=== PATIENT | male | born 1970 | race African-American/Black ===

== ENCOUNTER 2016-10-03 13:40 | Inpatient (IN) | payer OTHER ==
[~2016-10-03] VITALS: Ht 167.6 cm; Wt 99.7 kg
[~2016-10-03 13:40] MED LIST: ASPI325T6 PO; CALCIUM 600600 MG PO; HCTZ 25MG TAB25 MG PO; K-TAB20 PO; NEURONTIN300 MG/CAP PO; NORVASC 10MG10 MG PO; OXYCONTIN30 MG PO; REVLIMID10 MG PO; ROXICODONE 55 MG/TAB PO; VALTREX 50500 MG/TAB PO; VITAMIN B-6100 MG PO; VITAMIN D31000 I1 PO; ZOMETA4 MG/100 M IV
[2016-10-22] MEDS ORDERED: PHOS LO PO (12:31)
[2016-10-22] MEDS ORDERED: PRINIVIL40 MG PO (12:32)
[2016-10-22] MEDS ORDERED: B-121000 MCG PO (12:32)
[2016-10-22] MEDS ORDERED: MOBIC15 MG PO (12:33)
[2016-10-22] MEDS ORDERED: NORCO 325 MG-51 TAB PO (14:37)
[2016-10-22] MEDS ORDERED: SENOKOT S 50 MG1 TAB PO (14:37)
[2016-10-22] MEDS ORDERED: PYRIDIUM 100MG100 MG PO (14:38)
[2016-11-20] VITALS (11 sets, daily range): BP systolic 120–161; BP diastolic 64–89; PULSE 78–105; TEMP 97.9–98.2
[2016-11-21] VITALS (7 sets, daily range): BP systolic 113–144; BP diastolic 63–78; PULSE 93–102; TEMP 98.1–99.4
[2016-11-21 07:10] LABS: BASO % 0.2 % (0.0-2.0); GRAN % 86.2 % (42.2-75.2); LYMPH # 0.9 (1.2-3.4); MEAN CELL VOLUME 90 fl (80.0-100.0); MEAN CORPUSCULAR HGB CONC 34 g/dl (33.0-37.0); MEAN PLATELET VOLUME 9.4 fl (7.4-10.4); MONO # 0.8 (0.1-0.6); MONO % 6.1 % (1.7-9.3); PLATELET COUNT 158 K/mm3 (130-400); RED BLOOD COUNT 3.86 M/mm3 (4.20-5.60); REDCELL DISTRIBUTION WIDTH-CV 13.5 % (11.5-14.5); WHITE BLOOD COUNT 12.7 K/mm3 (4.8-10.8)
[2016-11-21 07:11] LABS: HEMATOCRIT 34.8 % (42.0-52.0); HEMOGLOBIN 11.8 g/dl (13.5-18.0); MEAN CORPUSCULAR HEMOGLOBIN 31 pg (27.0-31.0)
[2016-11-21 07:16] LABS: CALCIUM 8.1 mg/dL (8.4-10.2); CREATININE, serum 1.11 mg/dL (0.66-1.25); POTASSIUM 4.1 mmol/L (3.4-5.0)
[2016-11-22 04:50] VITALS: BP 129/78; PULSE 90; TEMP 99
[2016-11-22 09:52] VITALS: BP 128/73; PULSE 95; TEMP 98
[2016-11-22] MEDS ORDERED: LEVAQUIN 2250 MG/TAB PO (10:27)
[2016-11-22] MEDS ORDERED: PERCOCET 325 MG1 TA2 PO (10:27)
[2016-11-22] MEDS ORDERED: SENOKOT8.6 MG PO (10:28)
== END 2016-11-22 11:25 | disposition home or self-care (01) | DRG 707 ==
LOC: SURG 10-30 11:00 → INPTSU 11-20 06:00 → SURG 11-20 09:00
PROVIDERS: Urology
PROC: 0VT34ZZ Resection of Bilateral Seminal Vesicles, Percutaneous Endoscopic Approach (ICD-10-PCS; 2016-11-20)
PROC: 8E0W4CZ Robotic Assisted Procedure of Trunk Region, Percutaneous Endoscopic Approach (ICD-10-PCS; 2016-11-20)
PROC: 0VT04ZZ Resection of Prostate, Percutaneous Endoscopic Approach (ICD-10-PCS; principal; 2016-11-20 09:00)
DX: C61 Malignant neoplasm of prostate (principal); Z94.84 Stem cells transplant status; C67.5 Malignant neoplasm of bladder neck
CPT/HCPCS: A9284; C1713; J0690; J1100; J1170; J1885; J2270; J2405; J2704; J3010; J7120

== ENCOUNTER 2016-10-22 11:03 | Day surgery (SDC) | payer OTHER ==
[~2016-10-22] VITALS: Ht 167.6 cm; Wt 99.1 kg
[2016-10-22 12:21] VITALS: BP 129/80; PULSE 66; TEMP 98.5
[2016-10-22] MEDS ORDERED: PHOS LO PO (12:31)
[2016-10-22] MEDS ORDERED: PRINIVIL40 MG PO (12:32)
[2016-10-22] MEDS ORDERED: B-121000 MCG PO (12:32)
[2016-10-22] MEDS ORDERED: MOBIC15 MG PO (12:33)
[2016-10-22 14:00] VITALS: BP 125/68; PULSE 67; TEMP 98
[2016-10-22 14:15] VITALS: BP 115/78; PULSE 63
[2016-10-22 14:30] VITALS: BP 123/90; PULSE 60
[2016-10-22] MEDS ORDERED: SENOKOT S 50 MG1 TAB PO (14:37)
[2016-10-22] MEDS ORDERED: NORCO 325 MG-51 TAB PO (14:37)
[2016-10-22] MEDS ORDERED: PYRIDIUM 100MG100 MG PO (14:38)
[2016-10-22 14:45] VITALS: BP 108/78; PULSE 57
[2016-10-22 14:46] VITALS: BP 125/68; PULSE 68
== END 2016-10-22 15:20 | disposition home or self-care (01) ==
LOC: SDCO 11:03
DX: C67.5 Malignant neoplasm of bladder neck (principal); C67.0 Malignant neoplasm of trigone of bladder; C90.00 Multiple myeloma not having achieved remission; C61 Malignant neoplasm of prostate; G47.33 Obstructive sleep apnea (adult) (pediatric); I10 Essential (primary) hypertension
CPT/HCPCS: J0690; J1100; J1885; J2405; J2704; J3010

== ENCOUNTER 2017-07-30 16:26 | Emergency (ER) | payer OTHER ==
[~2017-07-30] VITALS: Ht 167.6 cm; Wt 101.8 kg
[~2017-07-30 16:26] MED LIST changes: +B-121000 MCG PO; +LEVAQUIN 2250 MG/TAB PO; +MOBIC15 MG PO; +NORCO 325 MG-51 TAB PO; +PERCOCET 325 MG1 TA2 PO; +PHOS LO PO; +PRINIVIL40 MG PO; +PYRIDIUM 100MG100 MG PO; +SENOKOT S 50 MG1 TAB PO; +SENOKOT8.6 MG PO
[2017-07-30 17:29] LABS: BASO % 0.4 % (0.0-2.0); EOS % 0.6 % (0-4.0); GRAN # 3.5 (1.4-6.5); GRAN % 74.5 % (42.2-75.2); HEMATOCRIT 38.9 % (42.0-52.0); HEMOGLOBIN 13.4 g/dl (13.5-18.0); LYMPH # 0.6 (1.2-3.4); LYMPH % 12.9 % (20.0-51.0); MEAN CELL VOLUME 88 fl (80.0-100.0); MEAN CORPUSCULAR HEMOGLOBIN 30 pg (27.0-31.0); MEAN CORPUSCULAR HGB CONC 34 g/dl (33.0-37.0); MEAN PLATELET VOLUME 9.8 fl (7.4-10.4); MONO # 0.5 (0.1-0.6); MONO % 10.5 % (1.7-9.3); PLATELET COUNT 123 K/mm3 (130-400); RED BLOOD COUNT 4.43 M/mm3 (4.20-5.60); REDCELL DISTRIBUTION WIDTH-CV 13.2 % (11.5-14.5)
[2017-07-30 17:49] LABS: ALBUMIN 3.7 gm/dL (3.5-5.0); BILIRUBIN,TOTAL 0.6 mg/dL (0.0-1.0); CALCIUM 9.2 mg/dL (8.4-10.2); CREATININE, serum 1.06 mg/dL (0.66-1.25); POTASSIUM 3.8 mmol/L (3.4-5.0); TOTAL PROTEIN 7.3 gm/dL (6.4-8.2)
[2017-07-30 18:27] VITALS: BP 118/73
[2017-07-30 19:11] LABS: COLLECTION METHOD CLEAN CATCH
[2017-07-30] MEDS ORDERED: LEVAQUIN 750MG750 M1 PO (19:13)
[2017-07-30 19:16] LABS: PH 6 (5-8); SQUAMOUS EPITHELIAL None Seen /hpf; URINE APPEARANCE Clear; URINE BACTERIA None Seen /hpf; URINE BILIRUBIN Negative (NEGATIVE); URINE BLOOD Negative (NEGATIVE); URINE COLOR Straw; URINE GLUCOSE Negative (NEGATIVE); URINE KETONE Negative (NEGATIVE); URINE LEUKOCYTE ESTERASE Negative (NEGATIVE); URINE NITRATE Negative (NEGATIVE); URINE PROTEIN(semi-quant) Negative (NEGATIVE); URINE RBC 0-2 /hpf; URINE UROBILINOGEN Negative (NEGATIVE)
[2017-07-30 19:26] VITALS: PULSE 99; TEMP 99.9
== END 2017-07-30 19:26 | disposition home or self-care (01) ==
LOC: COL.ER 16:26
PROVIDERS: Physician Assistant
DX: J18.1 Lobar pneumonia, unspecified organism (principal); I10 Essential (primary) hypertension; F17.220 Nicotine dependence, chewing tobacco, uncomplicated; Z85.46 Personal history of malignant neoplasm of prostate; Z90.79 Acquired absence of other genital organ(s); Z98.890 Other specified postprocedural states; Z94.84 Stem cells transplant status
CPT/HCPCS: J1885; J7030

== ENCOUNTER 2018-06-04 22:34 | Inpatient (IN) | payer OTHER ==
[~2018-06-04] VITALS: Ht 182.9 cm; Wt 98.2 kg
[~2018-06-04 22:34] MED LIST changes: -REVLIMID15 MG PO
[2018-06-04] MEDS ORDERED: REVLIMID15 MG PO (23:27)
[2018-06-04 23:36] LABS: HEMOGLOBIN 12.7 g/dl (13.5-18.0); MEAN CELL VOLUME 88 fl (80.0-100.0); MEAN CORPUSCULAR HEMOGLOBIN 30 pg (27.0-31.0); MEAN CORPUSCULAR HGB CONC 34 g/dl (33.0-37.0); PLATELET COUNT 104 K/mm3 (130-400); REDCELL DISTRIBUTION WIDTH-CV 13.2 % (11.5-14.5)
[2018-06-04 23:43] LABS: INR 1.6 (0.8-3.0); PROTHROMBIN TIME 17.8 SECONDS (9.7-12.8)
[2018-06-04 23:46] LABS: PARTIAL THROMBOPLASTIN TIME 32.8 SECONDS (26.0-37.0)
[2018-06-04 23:47] LABS: ALBUMIN 3.5 gm/dL (3.5-5.0); BILIRUBIN,TOTAL 0.9 mg/dL (0.0-1.0); CREATININE, serum 1.25 mg/dL (0.66-1.25); TOTAL PROTEIN 6.6 gm/dL (6.4-8.2)
[2018-06-04 23:48] LABS: POTASSIUM 2.9 mmol/L (3.4-5.0)
[2018-06-04 23:57] LABS: BAND 26 % (0-10); LYMPHOCYTE 8 % (20.0-51.0); NEUTROPHILS 61 % (42.0-75.2); PLATELET ESTIMATE DECREASED (NORMAL)
[2018-06-04 23:58] LABS: OVALOCYTES 1+; TEAR DROP CELLS 1+
[2018-06-05] VITALS (7 sets, daily range): BP systolic 89–135; BP diastolic 54–73; PULSE 79–113; TEMP 98–102.1
--- NOTE | 2018-06-05 01:53 | NUR ---
Patient admitted to the floor from the ER at 0100 via bedcart. Admission B and assessment completed. Allergies and med-rec reviewed. Patient is A&O x 4. VSS. Tele maintained. Denies any pain at this time, reports it is uncomfortable when walking on LLE. LLE from knee to ankle is noticablly swollen and warm to the touch compared to RLE. IVF infusing with intermittent antibiotic per orders. Denies any concerns or needs at this time, call light is within reach.
[2018-06-05 03:08] LABS: MAGNESIUM 1.3 mg/dL (1.6-2.3)
[2018-06-05 03:21] LABS: C-REACTIVE PROTEIN 22.6 mg/dL (0.0-0.9)
--- NOTE | 2018-06-05 06:14 | NUR ---
Patient has rested well since arriving to the floor. VSS, HR does become tachycardiac in the low 100's when patient is up and ambulating to the bathroom. LLE remains warm to the touch, swollen with slight reddness. IVF infusing per orders with intermittent antibiotic. Patient is currently taking oral potassium replacement with last dose scheduled to be given at 0900 and recheck of the potassium lab due at 1200. Patient denies any concerns or needs at this time. Infectious disease consult called to Dr. Fields this morning.
[2018-06-05 06:52] LABS: HEMATOCRIT 39.6 % (42.0-52.0); HEMOGLOBIN 13.4 g/dl (13.5-18.0); MEAN CELL VOLUME 89 fl (80.0-100.0); MEAN CORPUSCULAR HEMOGLOBIN 30 pg (27.0-31.0); MEAN CORPUSCULAR HGB CONC 34 g/dl (33.0-37.0); MEAN PLATELET VOLUME 10.1 fl (7.4-10.4); PLATELET COUNT 87 K/mm3 (130-400); RED BLOOD COUNT 4.47 M/mm3 (4.20-5.60); REDCELL DISTRIBUTION WIDTH-CV 13.2 % (11.5-14.5)
[2018-06-05 06:57] LABS: CALCIUM 7.4 mg/dL (8.4-10.2); CREATININE, serum 1.05 mg/dL (0.66-1.25); POTASSIUM 3.8 mmol/L (3.4-5.0)
--- NOTE | 2018-06-05 08:00 | NUR ---
pt resting in bed. A&Ox3. c/o of constant throbbing pain rating at 8/10 in the left calf area. Swelling and warmth present in LLE. Enouraged cough and deep breathing. call light within reach.
--- NOTE | 2018-06-05 08:00 | NUR ---
PATIENT RESTING IN BED. MEAL TRAY ON THE BEDSIDE TABLE. PATIENT IS A&O. TACHYCARDIA AND TEMPURATURE OF 102.1 NOTED, OTHERWISE VSS. TELE IN PLACE. PATIENT GIVEN 1 TABLET OF PRN NORCO FOR FEVER AND PAIN IN HIS LEFT CALF RATED AN 8/10 ON A 0-10 SCALE. BOWEL SOUNDS HYPOACTIVE ALL FOUR QUADRANTS. PATIENT TOLERATING FOOD & LIQUIDS WITHOUT ANY COMPLAINTS OF N/V. POSITIVE PEDAL PULSES EQUAL BILATERALLY. 1+ PITTING-EDEMA TO LEFT FOOT/ANKLE NOTED. NON-PITTING EDEMA, TIGHTNESS, ERYTHEMA, AND PAIN OVER LEFT CALF NOTED. CAP REFILL <3 SECONDS. CMS INTACT. IV FLUIDS INFUSING TO RIGHT HAND IV VIA PUMP. FAMILY PRESENT AT THE BEDSIDE. CALL LIGHT WITHIN REACH. PATIENT DENIES ANY OTHER NEEDS AT THIS TIME.
[2018-06-05 09:28] LABS: BAND 47 % (0-10); NEUTROPHILS 41 % (42.0-75.2)
[2018-06-05 09:29] LABS: LYMPHOCYTE 5 % (20.0-51.0); PLATELET ESTIMATE NORMAL (NORMAL)
--- NOTE | 2018-06-05 11:22 | NUR ---
MIS and SW student met with the patient to discuss discharge plan. The patient states that he lives in [place] with his (Eric) and son. The patient does not use any DME and reports independence with ADLs. The patient receives primary care through the OR in [place]. The patient also receives his medications from the OR in [place] and reports no difficulties obtaining his medications. The patient stated that he did not have a DPOA-HC completed and was not interested in completing one at this time. The patient plans to return home upon discharge. No additional needs at this time.
--- NOTE | 2018-06-05 12:00 | NUR ---
UPON RE-ASSESSMENT AFTER SECOND TABLET OF NORCO WAS GIVEN, TEMPURATURE DROPPED TO 100.0. PATIENT RATING HIS PAIN A 5/10 ON A 0-10 SCALE.
--- NOTE | 2018-06-05 12:20 | NUR ---
First visit from the room worker. No needs right now.
--- NOTE | 2018-06-05 13:38 | NUR ---
pt resting in bed. Reassesment of PRN Rosepine 2-tab given pt rating pain at 5/10 in the left lower extremity. no c/o nausea. IV fluids infusing to the right hand via IV pump. family at bedside. call light within reach.
--- NOTE | 2018-06-05 19:00 | NUR ---
REPORT GIVEN TO REBECCA SMITH.
--- NOTE | 2018-06-05 20:30 | NUR ---
HS med ibuprofen reviewed and given. IV wrapped and patient takes shower. Linens changed. LLE very painful when he ambulates and walker given to use prn. at bedside and very attentive. Declines snack/sprite given. LLE edematous/skin to calf tight and elevated on 2 pillows. Encouraged to call if needs stronger or additional pain med. Alert and oriented x4.
[2018-06-06] VITALS (7 sets, daily range): BP systolic 11–134; BP diastolic 62–78; PULSE 84–103; TEMP 98.4–102.5
--- NOTE | 2018-06-06 01:15 | NUR ---
Rests in bed with eyes closed. Respirations with ease.
--- NOTE | 2018-06-06 05:44 | NUR ---
Patient has been resting quietly in bed. Respirations with ease.
--- NOTE | 2018-06-06 05:56 | NUR ---
Patient awake watching TV. States "doing ok". Denies need for pain med.
[2018-06-06 06:48] LABS: HEMATOCRIT 38.9 % (42.0-52.0); MEAN CELL VOLUME 89 fl (80.0-100.0); MEAN CORPUSCULAR HEMOGLOBIN 30 pg (27.0-31.0); MEAN CORPUSCULAR HGB CONC 33 g/dl (33.0-37.0); MEAN PLATELET VOLUME 10.7 fl (7.4-10.4); PLATELET COUNT 97 K/mm3 (130-400); RED BLOOD COUNT 4.37 M/mm3 (4.20-5.60); REDCELL DISTRIBUTION WIDTH-CV 13.2 % (11.5-14.5)
[2018-06-06 06:50] LABS: CALCIUM 7.6 mg/dL (8.4-10.2); CREATININE, serum 1.58 mg/dL (0.66-1.25); MAGNESIUM 2.5 mg/dL (1.6-2.3); POTASSIUM 3.6 mmol/L (3.4-5.0)
[2018-06-06 07:29] LABS: BAND 29 % (0-10); NEUTROPHILS 46 % (42.0-75.2); PLATELET ESTIMATE NORMAL (NORMAL)
[2018-06-06 07:31] LABS: LYMPHOCYTE 9 % (20.0-51.0)
--- NOTE | 2018-06-06 07:50 | NUR ---
pt up in chair watching tv. there is redness, warmth and swelling in the left lower extremity. pt rates constant pain at 5 on scale of 1-10. denies need for pain medication at this time. call light within reach.
--- NOTE | 2018-06-06 08:00 | NUR ---
PATIENT IS A&O. TACHYCARDIA NOTED, OTHERWISE VSS. BOWEL SOUNDS ACTIVE ALL FOUR QUADRANTS. PATIENT TOLERATING FOOD & LIQUIDS WITHOUT ANY COMPLAINTS OF N/V. POSITIVE PEDAL PULSES EQUAL BILATERALLY. 1+ PITTING-EDEMA TO LEFT FOOT. TIGHTNESS OVER LEFT CALVE WITH SMALL ROUND SCAB TO FRONT OF NGUYEN NOTED. REDNESS TO CALF NOTED. LLE ELEVATED ON PILLOWS. IV FLUIDS INFUSING TO RIGHT HAND IV. CALL LIGHT WITHIN REACH. NO OTHER NEEDS AT THIS TIME.
--- NOTE | 2018-06-06 13:18 | NUR ---
pt in bed. Scheduled Vibramycin hung and began infusing at 75mL/hr to monitor for adverse reaction. patient tolerated well and increased rate to 125mL/hr. VSS. discussed to let nurse know if he experiences chills, itching, nausea, or any other unpleasant symptoms. encouraged to call when he gets up to use bathroom for FENA collection. pt states "doing alright" no need for pain medication at this time. LLE extremity elevated by pillows. SCD on RLE. family and mealtray at bedside. pt has no further concerns at this time. call light within reach. report given to Primary REBECCA Talley.
[2018-06-06 14:47] LABS: CREATININE, serum 1.57 mg/dL (0.66-1.25)
--- NOTE | 2018-06-06 16:55 | NUR ---
REPORT GIVEN TO REBECCA WHATLEY.
--- NOTE | 2018-06-06 17:00 | NUR ---
GAVE ORDERS TO COLLECT WOUND CULTURE ONLY IF SCAB OPENS OR WOUND STARTS TO DEVELOP DRAINAGE.
--- NOTE | 2018-06-06 18:29 | NUR ---
Patient in bed resting, alert and oriented x 3. at bedside. IV fluids infusing by pump to left hand. Denies pain at this time. Denies further needs at this time. Will report off to fast food shift supervisor.
--- NOTE | 2018-06-06 22:52 | NUR ---
Completed assessment and medication administration; PT tolerated all cares well; PT had acute fever of 102.4 that resolved without medication; LLE is warm and red; ABX continues for cellulitis; scabbed wounds deem wound culture unable to be completed per doctor; PT is A&Ox3, BS active x4, IND in room; NS at 150ml/hr continue to right hand; No further complaints or concerns at time of exit; Call light placed within reach; Will continue to monitor. CDA
[2018-06-07 00:39] VITALS: BP 110/64; PULSE 98; TEMP 100.5
--- NOTE | 2018-06-07 03:26 | NUR ---
PT resting well in bed with spouse on window bench; IV running NS to right hand at 150ml/hr; LLE continues to be red and warm to touch; No further accessed concerns at time of rounds; PT IND resumed comfortable position in bed; call placed within reach; Will continue to monitor. CDA
[2018-06-07 04:00] VITALS: BP 114/74; PULSE 94; TEMP 101
--- NOTE | 2018-06-07 04:52 | NUR ---
Made ALONZO Moreno aware of fever; no new order or changes made at this time. Will let the fever continue to naturally work; Call to notifiy if fever gets above 101.5F. CDA
[2018-06-07 05:59] LABS: HEMATOCRIT 32.9 % (42.0-52.0); HEMOGLOBIN 11.2 g/dl (13.5-18.0); MEAN CELL VOLUME 88 fl (80.0-100.0); MEAN CORPUSCULAR HEMOGLOBIN 30 pg (27.0-31.0); MEAN CORPUSCULAR HGB CONC 34 g/dl (33.0-37.0); PLATELET COUNT 120 K/mm3 (130-400); RED BLOOD COUNT 3.72 M/mm3 (4.20-5.60); REDCELL DISTRIBUTION WIDTH-CV 13.4 % (11.5-14.5)
[2018-06-07 06:03] LABS: CALCIUM 7.4 mg/dL (8.4-10.2); CREATININE, serum 1.65 mg/dL (0.66-1.25); MAGNESIUM 2.1 mg/dL (1.6-2.3); POTASSIUM 3.3 mmol/L (3.4-5.0)
--- NOTE | 2018-06-07 06:53 | NUR ---
Report given to REBECCA Retana. CDA
[2018-06-07 08:05] VITALS: BP 136/73; PULSE 92; TEMP 98.9
[2018-06-07 08:31] LABS: BAND 9 % (0-10); LYMPHOCYTE 9 % (20.0-51.0); NEUTROPHILS 73 % (42.0-75.2); PLATELET ESTIMATE NORMAL (NORMAL)
--- NOTE | 2018-06-07 09:35 | NUR ---
Pt is awake and A/Ox4, sitting up in bed eating breakfast. He states he is having 10/10 pain to his LLE, he initially adamantly refuses pain medication but eventually states he would like to try norco which was given. LLE is red, swollen, and warm to touch. He reports he believes that his leg is worse today. IVF are infusing into right hand without difficulty. Pt and deny needs at this time.
[2018-06-07 11:36] VITALS: BP 121/75; PULSE 89; TEMP 97.8
--- NOTE | 2018-06-07 12:51 | NUR ---
Pt requested additional pain medication, reports 5/10 pain to LLE when resting and 10/10 to LLE with ambulation. Pt was given PRN norco x2.
[2018-06-07 16:09] VITALS: BP 126/76; PULSE 86; TEMP 98.6
--- NOTE | 2018-06-07 16:52 | NUR ---
Pt has had an overall uneventful shift. Pain to LLE is well controlled with PRN norco. Currently pt states his pain is a 2/10 while resting in bed. Denies any stools this afternoon. Denies any other needs. at bedside.
[2018-06-07 21:10] VITALS: BP 114/65; PULSE 90; TEMP 98.6
--- NOTE | 2018-06-07 23:17 | NUR ---
Completed assessment and medication administration; PT tolerated all cares and medications well; PT reported pain of 7/10 to LLE prior to administration of available Helen x2; PT A&Ox3, BS active x4, and LCTAB; PT denied further needs at time of exit; PT able to position comfortably into bed without assistance; Call light placed within reach; No further needs verbalized at this time; Will continue to monitor. CDA
[2018-06-08 00:12] VITALS: BP 129/70; PULSE 99; TEMP 99.7
[2018-06-08 04:56] VITALS: BP 121/70; PULSE 87; TEMP 98.6
[2018-06-08 06:15] LABS: HEMOGLOBIN 11.5 g/dl (13.5-18.0); MEAN CELL VOLUME 90 fl (80.0-100.0); MEAN CORPUSCULAR HEMOGLOBIN 31 pg (27.0-31.0); MEAN CORPUSCULAR HGB CONC 34 g/dl (33.0-37.0); MEAN PLATELET VOLUME 9.9 fl (7.4-10.4); PLATELET COUNT 151 K/mm3 (130-400); RED BLOOD COUNT 3.77 M/mm3 (4.20-5.60); REDCELL DISTRIBUTION WIDTH-CV 13.8 % (11.5-14.5)
--- NOTE | 2018-06-08 06:23 | NUR ---
PT resting well in bed with CPAP in place; PT tolerated ABX IV well without complaints; PT continues I&O measuring and educated on purpose of measuring out; PT reports decrease in LLE pain and discomfort; No further needs assessed at time of rounds; call light within reach; will continue to monitor. CDA
[2018-06-08 06:25] LABS: HEMATOCRIT 33.9 % (42.0-52.0)
[2018-06-08 06:28] LABS: ALBUMIN 2.7 gm/dL (3.5-5.0); BILIRUBIN,TOTAL 0.2 mg/dL (0.0-1.0); CALCIUM 7.7 mg/dL (8.4-10.2); CREATININE, serum 1.58 mg/dL (0.66-1.25); POTASSIUM 3.2 mmol/L (3.4-5.0); TOTAL PROTEIN 5.6 gm/dL (6.4-8.2)
--- NOTE | 2018-06-08 06:58 | NUR ---
Report given to REBECCA Julien. CDA
[2018-06-08 07:22] VITALS: BP 116/72; PULSE 77; TEMP 98.8
[2018-06-08 08:57] LABS: BAND 12 % (0-10); EOSINOPHIL 2 % (0-4); LYMPHOCYTE 13 % (20.0-51.0); NEUTROPHILS 61 % (42.0-75.2); PLATELET ESTIMATE NORMAL (NORMAL)
[2018-06-08 13:08] VITALS: BP 113/74; PULSE 86; TEMP 97.9
--- NOTE | 2018-06-08 13:30 | NUR ---
Patient started to having clear drainage from his left calf. There is a cluster of blisters that are weeping. Notified Dr Fields and asked if wanted the wound cultured. Wound culture sent. Changed the patients linens that had drainage on them. Patient did not want a dressing or tape on his leg. It is not draining very much. No increased pain. No other changes at this time. Call light within reach.
[2018-06-08 15:43] VITALS: BP 120/89; PULSE 94; TEMP 99.3
--- NOTE | 2018-06-08 18:36 | NUR ---
Patient is sitting up on the couch to eat dinner. His brought food for him. He is rating pain at 7 on a 0-10 scale. Ira given. No complaints of nausea. He has been doing ok this afternoon. No more drainage from left leg. No other changes at this time.
[2018-06-08 20:44] VITALS: BP 141/85; PULSE 91; TEMP 98.6
--- NOTE | 2018-06-08 22:00 | NUR ---
PT WORRIED ABOUT BLISTERY AREA ON LEFT CALF THAT IS WEEPING. PT DID NOT WANT LEG WRAPPED.
[2018-06-09 00:05] VITALS: BP 127/80; PULSE 86; TEMP 99.2
[2018-06-09 04:15] VITALS: BP 125/65; PULSE 93; TEMP 99.4
--- NOTE | 2018-06-09 06:17 | NUR ---
PT HAS KEPT LLE ELEVATED ALL NIGHT. NO REQUEST FOR PAIN MEDS. IN ROOM.
[2018-06-09 06:33] LABS: HEMOGLOBIN 11.8 g/dl (13.5-18.0); MEAN CELL VOLUME 89 fl (80.0-100.0); MEAN CORPUSCULAR HEMOGLOBIN 30 pg (27.0-31.0); MEAN CORPUSCULAR HGB CONC 34 g/dl (33.0-37.0); MEAN PLATELET VOLUME 9.9 fl (7.4-10.4); PLATELET COUNT 194 K/mm3 (130-400); RED BLOOD COUNT 3.92 M/mm3 (4.20-5.60); REDCELL DISTRIBUTION WIDTH-CV 13.8 % (11.5-14.5)
[2018-06-09 06:48] LABS: ALBUMIN 2.9 gm/dL (3.5-5.0); BILIRUBIN,TOTAL 0.2 mg/dL (0.0-1.0); CALCIUM 8.4 mg/dL (8.4-10.2); CREATININE, serum 1.57 mg/dL (0.66-1.25); POTASSIUM 3.7 mmol/L (3.4-5.0)
--- NOTE | 2018-06-09 07:30 | NUR ---
Pt AAOx3 independent in room, at bedside. Pt states feeling "confused because my leg has only gotten worse since hospital admisison". Pt educated on IV antibiotics and infectious process.
[2018-06-09 08:23] VITALS: BP 133/75; PULSE 90; TEMP 99.4
[2018-06-09 09:28] LABS: BAND 24 % (0-10); DOHLE BODIES PRESENT; EOSINOPHIL 1 % (0-4); LYMPHOCYTE 9 % (20.0-51.0); NEUTROPHILS 51 % (42.0-75.2); PLATELET ESTIMATE NORMAL (NORMAL); TOXIC GRANULATION PRESENT
[2018-06-09 11:42] VITALS: BP 148/60; PULSE 85; TEMP 98
[2018-06-09 16:56] VITALS: BP 141/84; PULSE 94; TEMP 98.2
[2018-06-09 20:53] VITALS: BP 129/83; PULSE 91; TEMP 98.4
--- NOTE | 2018-06-09 21:00 | NUR ---
Assessment complete see flow sheet. C/O pain at IV site. Noted to be leaking when flush attempted, swelling at site with redness. DCd at this time, cath intact. Left lower extremity eleveated on pillow. Wound noted to be seeping yellow fluid. Noted to be red with swelling to all of the calf area. Plan of care discussed-verbalizes understanding. Instructed to call for question or concerns. Will continue to monitor.
[2018-06-10 00:14] VITALS: BP 134/66; PULSE 77; TEMP 97.8
[2018-06-10 04:00] VITALS: BP 127/85; PULSE 89; TEMP 98.3
--- NOTE | 2018-06-10 05:00 | NUR ---
Rested off and on through the night. Denies any need for pain medications-states pain level is 4/10 but is acceptable. Instructed to call for questions or concerns. Will monitor.
[2018-06-10 07:04] LABS: HEMATOCRIT 38.2 % (42.0-52.0); HEMOGLOBIN 12.5 g/dl (13.5-18.0); MEAN CELL VOLUME 90 fl (80.0-100.0); MEAN CORPUSCULAR HEMOGLOBIN 29 pg (27.0-31.0); MEAN CORPUSCULAR HGB CONC 33 g/dl (33.0-37.0); PLATELET COUNT 228 K/mm3 (130-400); RED BLOOD COUNT 4.25 M/mm3 (4.20-5.60); REDCELL DISTRIBUTION WIDTH-CV 13.9 % (11.5-14.5)
[2018-06-10 07:13] LABS: CALCIUM 9.1 mg/dL (8.4-10.2); CREATININE, serum 1.47 mg/dL (0.66-1.25); POTASSIUM 3.9 mmol/L (3.4-5.0)
[2018-06-10 07:55] VITALS: BP 106/88; PULSE 92; TEMP 99
--- NOTE | 2018-06-10 08:50 | NUR ---
Patient up in chair. Alert and oriented x3. Shift assessment complete. LLE elevated with small amount of drainage present from blister to posterior calf. Blister noted on jennings. States pain 8/10 to LLE. Medications given per orders. Denies further needs at this time.
[2018-06-10 10:42] LABS: BAND 12 % (0-10); EOSINOPHIL 1 % (0-4); LYMPHOCYTE 20 % (20.0-51.0); NEUTROPHILS 65 % (42.0-75.2); PLATELET ESTIMATE NORMAL (NORMAL)
[2018-06-10 15:47] VITALS: BP 126/85; PULSE 91; TEMP 98.5
--- NOTE | 2018-06-10 17:58 | NUR ---
Patient in bed resting, Continues to have minimal drainage from blisters on LLE. Denies pain at this time, states he mainly has jimena when ambulating. Denies further needs at this time. Will report off to shift superintendent caustic cresylate.
[2018-06-10 19:52] VITALS: BP 133/81; PULSE 82; TEMP 99
--- NOTE | 2018-06-10 20:50 | NUR ---
PLAN OF CARE DISCUSSED. ASSESSMENT COMPLETE. POTASSIUM 3.9 WITH A 62 GFR SO NO POTASSIUM GIVEN PER PROTOCOL. STATES HAVING 8/10 PAIN IN LEFT LOWER EXTREMITY-NORCO 2 TABS GIVEN PO PER DR ORDER. WILL REASSESS. LEFT LOWER CALF OPEN AREAS NOTED TO BE SEEPING A CLEAR YELLOW FLUID BOTH ANTERIOR AND POSTERIOR. ELEVATED ON PILLOW WITH CHUX UNDERNEATH.PEDAL PULSES PALPABLE WITH 2+ EDEMA. EXTREMITY IS WARM TO TOUCH WITH SOME DISCOLORATION. POSTERIOR OPEN AREA DOES APPEAR LARGER IN SIZE THIS SHIFT COMPARED TO ASSESSMENT ON 06/09/18. DENIES ANY QUESTIONS OR CONCERNS. ENCOURAGED TO CALL FOR NEEDS. VERBALIZES UNDERSTANDING. WILL MONITOR.
--- NOTE | 2018-06-10 21:45 | NUR ---
REASSESSED PAIN LEVEL- STATES ITS STILL 8 OR 9/10. STATES IT USUALLY TAKES UP TO TWO HOURS POST ADMINISTER TO FEEL RELIEF. WILL REASSESS IN ONE HOUR.
--- NOTE | 2018-06-10 23:00 | NUR ---
THIS NURSE TO ROOM TO ASSESS PAIN LEVEL. RESTING WITH EYES CLOSED AND CPAP ON. NO S/S OF PAIN NOTED. WILL CONTINUE TO MONITOR.
[2018-06-11 04:07] VITALS: BP 140/89; PULSE 88; TEMP 98.5
--- NOTE | 2018-06-11 06:23 | NUR ---
NORCO 2 TABS GIVEN AT THIS TIME FOR PAIN LEVEL 9/10. SLEPT MOST OF THIS SHIFT. VS STABLE. LEFT LEG ELEVATED ON PILLOW. DENIES ANY QUESTIONS OR CONCERNS AT THIS TIME. C-DIFF COLLECTION STILL NEEDED-NO STOOL SINCE SATURDAY. STATES HE FEELS IF HE MAY THIS AM. INSTRUCTED TO CALL IF CAN. VERBALIZES UNDERSTANDING. NO OTHER CONCERNS AT THIS TIME. WILL MONITOR.
[2018-06-11 06:31] LABS: HEMOGLOBIN 11.6 g/dl (13.5-18.0); MEAN CELL VOLUME 89 fl (80.0-100.0); MEAN CORPUSCULAR HEMOGLOBIN 30 pg (27.0-31.0); MEAN CORPUSCULAR HGB CONC 33 g/dl (33.0-37.0); MEAN PLATELET VOLUME 9.6 fl (7.4-10.4); PLATELET COUNT 277 K/mm3 (130-400); RED BLOOD COUNT 3.92 M/mm3 (4.20-5.60); REDCELL DISTRIBUTION WIDTH-CV 13.8 % (11.5-14.5)
[2018-06-11 06:45] LABS: CALCIUM 8.8 mg/dL (8.4-10.2); CREATININE, serum 1.45 mg/dL (0.66-1.25); POTASSIUM 4.1 mmol/L (3.4-5.0)
[2018-06-11 08:29] VITALS: BP 134/84; PULSE 88; TEMP 98.9
[2018-06-11 09:55] LABS: BAND 14 % (0-10); DOHLE BODIES PRESENT; EOSINOPHIL 3 % (0-4); LYMPHOCYTE 10 % (20.0-51.0); NEUTROPHILS 70 % (42.0-75.2); PLATELET ESTIMATE NORMAL (NORMAL); TOXIC GRANULATION PRESENT
[2018-06-11 09:56] LABS: ANISOCYTOSIS 1+
--- NOTE | 2018-06-11 10:00 | NUR ---
Patient alert and oriented, answers questions appropriately. See assessment. LLE with 3+ weeping edema and redness noted. LLE warm to touch. C/o pain with ambulation, but no pain when sitting in chair with legs elevated. Inquires about discharge and when providers will be making rounds. No other c/o at this time.
[2018-06-11 12:45] VITALS: BP 160/89; PULSE 42; PULSE 705; TEMP 98.3
[2018-06-11] MEDS ORDERED: CLEOCIN HCL300 MG PO (14:27)
[2018-06-11] MEDS ORDERED: XARELTO20 MG PO (14:27)
[2018-06-11] MEDS ORDERED: NORCO 325 MG-51 TAB PO (15:07)
--- NOTE | 2018-06-11 15:23 | NUR ---
Patient dc home with no unmet discharge needs.
--- NOTE | 2018-06-11 17:09 | NUR ---
Discharge instructions reviewed with patient and spouse, verbalized understanding. Discharged via wheelchair to auto/home with family at 1655.
--- NOTE | 2018-06-12 11:06 | NUR ---
dobie worker spoke with Bubba Mcnally at [facility], and faxed clinical information and script for Anupam.
== END 2018-06-11 16:55 | disposition home or self-care (01) | DRG 603 ==
LOC: COL.ER 22:34 → SURG 23:42
PROVIDERS: Emergency Medicine; Family Medicine; Hospitalist; Nurse Practitioner; Nurse Practitioner Family; Physician Assistant; ADMIT Internal Medicine
DX: L03.116 Cellulitis of left lower limb (principal); I82.812 Embolism and thrombosis of superficial veins of left lower extremity; Z94.84 Stem cells transplant status; N17.9 Acute kidney failure, unspecified; I10 Essential (primary) hypertension; Z85.46 Personal history of malignant neoplasm of prostate; Z85.79 Personal history of other malignant neoplasms of lymphoid, hematopoietic and related tissues; Z87.891 Personal history of nicotine dependence; E87.6 Hypokalemia; E83.42 Hypomagnesemia; D69.6 Thrombocytopenia, unspecified; I95.9 Hypotension, unspecified; R19.7 Diarrhea, unspecified
CPT/HCPCS: 99223-AI; 99231-AI; 99232-AI; 99233-AI; 99239; A9585; J0692; J0696; J1650; J2543; J3370; J3475; J7030; J7040; J7050

== ENCOUNTER → 2018-06-04 | Outpatient (CLI) | payer OTHER ==
[~2018-06-04] MED LIST changes: +LEVAQUIN 750MG750 M1 PO; +REVLIMID15 MG PO
[2018-06-04 16:41] LABS: HEMATOCRIT 42.4 % (42.0-52.0); HEMOGLOBIN 14.3 g/dl (13.5-18.0); MEAN CELL VOLUME 90 fl (80.0-100.0); MEAN CORPUSCULAR HEMOGLOBIN 30 pg (27.0-31.0); MEAN CORPUSCULAR HGB CONC 34 g/dl (33.0-37.0); MEAN PLATELET VOLUME 10.2 fl (7.4-10.4); PLATELET COUNT 95 K/mm3 (130-400); RED BLOOD COUNT 4.73 M/mm3 (4.20-5.60); REDCELL DISTRIBUTION WIDTH-CV 13.2 % (11.5-14.5)
[2018-06-04 16:55] LABS: CALCIUM 8.4 mg/dL (8.4-10.2); CREATININE, serum 1.32 mg/dL (0.66-1.25)
[2018-06-04 17:17] LABS: BAND 30 % (0-10); LYMPHOCYTE 13 % (20.0-51.0); METAMYELOCYTE 1 % (0-0); NEUTROPHILS 51 % (42.0-75.2)
[2018-06-04 17:18] LABS: ANISOCYTOSIS 1+
== END ==
LOC: COL.LAB 15:52
PROVIDERS: Physician Assistant
DX: L03.116 Cellulitis of left lower limb (principal)

== ENCOUNTER 2020-04-12 12:16 | Inpatient (IN) | payer OTHER ==
[~2020-04-12] VITALS: Ht 167.6 cm; Wt 104.4 kg
[2020-04-12] VITALS (106 sets, daily range): BP systolic 123–130; BP diastolic 87–92; PULSE 89–96; TEMP 99.1–99.5; O2SAT 79–94
[~2020-04-12 12:16] MED LIST changes: +CLEOCIN HCL300 MG PO; +REVLIMID15 MG PO; +XARELTO20 MG PO
[2020-04-12 14:17] LABS: MEAN CELL VOLUME 89 fl (80.0-100.0); MEAN CORPUSCULAR HEMOGLOBIN 30 pg (27.0-31.0); MEAN CORPUSCULAR HGB CONC 33 g/dl (33.0-37.0); MEAN PLATELET VOLUME 9.3 fl (7.4-10.4); PLATELET COUNT 264 K/mm3 (130-400); RED BLOOD COUNT 4.36 M/mm3 (4.20-5.60); REDCELL DISTRIBUTION WIDTH-CV 13.3 % (11.5-14.5)
[2020-04-12 14:24] LABS: ALANINE AMINOTRANSFERASE 30 U/L (4-49); ALBUMIN 3.5 gm/dL (3.5-5.0); ALKALINE PHOSPHATASE 71 U/L (50-136); ANION GAP 10 mmol/L (7-16); AST,SGOT 31 U/L (15-37); BILIRUBIN,TOTAL 0.6 mg/dL (0.0-1.0); BLOOD UREA NITROGEN 19 mg/dL (9-20); CALCIUM 8.3 mg/dL (8.4-10.2); CARBON DIOXIDE 27 mmol/L (22-30); CHLORIDE 99 mmol/L (98-107); CREATININE, serum 1.07 (0.66-1.25); GLUCOSE 139 mg/dL (74-106); POTASSIUM 3.6 mmol/L (3.4-5.0); SODIUM 135 mmol/L (137-145); TOTAL PROTEIN 7.1 gm/dL (6.4-8.2)
[2020-04-12 14:43] LABS: TROPONIN-I < 0.012 ng/mL (0.000-0.035)
[2020-04-12 15:08] LABS: INR 1.3 (0.8-3.0); PROTHROMBIN TIME 14.9 SECONDS (9.7-12.8)
[2020-04-12 15:10] LABS: PARTIAL THROMBOPLASTIN TIME 34.1 SECONDS (26.0-37.0)
[2020-04-12] MEDS ORDERED: PRINIVIL40 MG PO (16:31)
[2020-04-12] MEDS ORDERED: MOBIC15 MG PO (16:31)
[2020-04-12] MEDS ORDERED: DOXYCYCLINE 10100 MG PO (16:32)
[2020-04-12] MEDS ORDERED: AMOXICILLIN 8751 TAB PO (16:32)
[2020-04-12] MEDS ORDERED: TESSALON P100 MG/CAP PO (16:33)
[2020-04-12] MEDS ORDERED: TYLENOL 500MG500 MG PO (16:34)
[2020-04-12 17:22] LABS: BAND 18 % (0-10); LYMPHOCYTE 3 % (20.0-51.0); NEUTROPHILS 75 % (42.0-75.2)
[2020-04-12 17:26] LABS: OVALOCYTES 1+; SCHISTOCYTES 1+; SPHEROCYTE 1+
[2020-04-12 17:27] LABS: PLATELET ESTIMATE NORMAL (NORMAL)
[2020-04-12 18:22] LABS: TROPONIN-I < 0.012 ng/mL (0.000-0.035)
[2020-04-12 19:17] LABS: ARTERIAL BLD GAS O2 SATURATION 89.6 % (92-100); ARTERIAL BLD GAS TCO2 CT 25.9; ARTERIAL BLOOD GAS BASE EXCESS 2.1 (-2-2); ARTERIAL BLOOD GAS HCO3 24.9 meq/L (22-26); ARTERIAL BLOOD GAS PCO2 33.3 mmHg (35-45); ARTERIAL BLOOD GAS PO2 57.1 mmHg (80-100); ARTERIAL BLOOD GAS pH 7.49 (7.35-7.45)
--- NOTE | 2020-04-12 20:41 | NUR ---
2029 called [facility] and talked to spoke with nurse Inquiring on obtaining another ABG post 1 hour on AirVo 60l 100% Pt sat is 88% Explained proning was attempted in the ED and patient could not tolerate it Nurse will speak with physician Nurse returned call at 2033 and physician does not want another ABG /wants to prone pt/ nurse said she relayed the information about the attempt in ED and the physician still would like us to try proning This was relayed to Boni FERNANDEZ and discussed with the alert and oriented patient who at this time refuses proning
[2020-04-13] VITALS (461 sets, daily range): BP systolic 102–141; BP diastolic 51–94; PULSE 73–98; TEMP 98.1–99.1; O2SAT 83–100
--- NOTE | 2020-04-13 07:30 | NUR ---
REPORT RECEIVED FROM REBECCA MCDOWELL. PATIENT ON BIPAP AT THIS TIME.
--- NOTE | 2020-04-13 10:00 | NUR ---
PATIENT TAKEN OFF BIPAP, PLACED ON AIRVO WITH 60L FLOW AND 95% FIO2. PATIENT RESP RATE IS 38/MINUTE AND SPO2 92%
[2020-04-13 11:51] LABS: ARTERIAL BLOOD GAS PCO2 29.8 mmHg (35-45); ARTERIAL BLOOD GAS pH 7.48 (7.35-7.45)
[2020-04-13 11:52] LABS: ARTERIAL BLD GAS O2 SATURATION 98.4 % (92-100); ARTERIAL BLOOD GAS BASE EXCESS -0.3 (-2-2); ARTERIAL BLOOD GAS PO2 109.8 mmHg (80-100)
--- NOTE | 2020-04-13 12:51 | NUR ---
Roughing Mill Operator contacted patient's , Eric (ph#[phone]) to complete initial intake. Patient lives in [place] with Eric and goes to the [facility] for primary care. Patient sees a provider with the [facility] and also has his medications mailed from the [place]. Patient uses a CPAP and no other DME. Patient is independent with ADLS and Eric advised that patient plans to return home upon discharge. Eric advised patient does not have Advance Directives. Legal next of kin would be Eric, patient's . MIS will continue to follow.
[2020-04-13 14:05] LABS: HEMATOCRIT 37.8 % (42.0-52.0); HEMOGLOBIN 12.7 g/dl (13.5-18.0); MEAN CELL VOLUME 88 fl (80.0-100.0); MEAN CORPUSCULAR HEMOGLOBIN 30 pg (27.0-31.0); MEAN CORPUSCULAR HGB CONC 34 g/dl (33.0-37.0); MEAN PLATELET VOLUME 9.5 fl (7.4-10.4); PLATELET COUNT 271 K/mm3 (130-400); RED BLOOD COUNT 4.31 M/mm3 (4.20-5.60); REDCELL DISTRIBUTION WIDTH-CV 13.4 % (11.5-14.5)
[2020-04-13 14:06] LABS: BAND 6 % (0-10); LYMPHOCYTE 3 % (20.0-51.0); NEUTROPHILS 90 % (42.0-75.2)
[2020-04-13 14:07] LABS: PLATELET ESTIMATE NORMAL (NORMAL); SCHISTOCYTES 1+
[2020-04-13 14:37] LABS: CALCIUM 8.1 mg/dL (8.4-10.2); CREATININE, serum 0.79 (0.66-1.25)
[2020-04-13 19:02] LABS: ARTERIAL BLD GAS O2 SATURATION 92.5 % (92-100); ARTERIAL BLD GAS TCO2 CT 19.2; ARTERIAL BLOOD GAS BASE EXCESS -4.2 (-2-2); ARTERIAL BLOOD GAS HCO3 18.4 meq/L (22-26); ARTERIAL BLOOD GAS PCO2 27.4 mmHg (35-45); ARTERIAL BLOOD GAS PO2 65.4 mmHg (80-100); ARTERIAL BLOOD GAS pH 7.45 (7.35-7.45)
--- NOTE | 2020-04-13 19:15 | NUR ---
REPORT GIVEN TO REBECCA BUSTILLO
--- NOTE | 2020-04-13 19:30 | NUR ---
Received report from REBECCA Stokes. Patient resting quietly in bed watching TV. Patient's oxygen saturation is 91-93% on AirVo, receiving 60L and 93% Respirations ranging 25-35 breaths/minute. Other vitals within normal limits. Patient denies any pain or further needs at this time. Will continue to monitor.
[2020-04-14] VITALS (645 sets, daily range): BP systolic 108–145; BP diastolic 53–96; PULSE 71–96; TEMP 98–99; O2SAT 75–100
[2020-04-14 05:32] LABS: ARTERIAL BLD GAS O2 SATURATION 92.9 % (92-100); ARTERIAL BLD GAS TCO2 CT 22.1; ARTERIAL BLOOD GAS BASE EXCESS -1.7 (-2-2); ARTERIAL BLOOD GAS HCO3 21.1 meq/L (22-26); ARTERIAL BLOOD GAS PCO2 30.6 mmHg (35-45); ARTERIAL BLOOD GAS PO2 68.6 mmHg (80-100); ARTERIAL BLOOD GAS pH 7.46 (7.35-7.45)
[2020-04-14 05:36] LABS: BASO % 0.2 % (0.0-2.0); GRAN # 5.8 (1.4-6.5); GRAN % 88.7 % (42.2-75.2); HEMATOCRIT 37.3 % (42.0-52.0); HEMOGLOBIN 12.1 g/dl (13.5-18.0); LYMPH # 0.4 (1.2-3.4); LYMPH % 5.9 % (20.0-51.0); MEAN CELL VOLUME 91 fl (80.0-100.0); MEAN CORPUSCULAR HEMOGLOBIN 29 pg (27.0-31.0); MEAN CORPUSCULAR HGB CONC 32 g/dl (33.0-37.0); MEAN PLATELET VOLUME 9.6 fl (7.4-10.4); MONO # 0.3 (0.1-0.6); PLATELET COUNT 295 K/mm3 (130-400); RED BLOOD COUNT 4.12 M/mm3 (4.20-5.60); REDCELL DISTRIBUTION WIDTH-CV 13.6 % (11.5-14.5)
[2020-04-14 05:47] LABS: BILIRUBIN,TOTAL 0.4 mg/dL (0.0-1.0); CALCIUM 8.1 mg/dL (8.4-10.2); CREATININE, serum 0.87 (0.66-1.25); MAGNESIUM 2.5 mg/dL (1.6-2.3); PHOSPHOROUS 3.7 mg/dL (2.5-4.5); POTASSIUM 4.5 mmol/L (3.4-5.0); TOTAL PROTEIN 6.2 gm/dL (6.4-8.2)
--- NOTE | 2020-04-14 07:00 | NUR ---
Report given to REBECCA Cazares.
--- NOTE | 2020-04-14 12:02 | NUR ---
Chaplain issa for the patient while standing outside the door.
--- NOTE | 2020-04-14 20:00 | NUR ---
Assessment complete. Pt is AXO X3, denies having any pain at this time. Pt will get tachypneic and presesnt with dyspnea when talking on the phone. LIJ has good blood return and flushes easily. Pt is sitting up in the bed watching TV at this time and he denies further needs. Call light within reach, will continue to monitor.
[2020-04-15] VITALS (399 sets, daily range): BP systolic 125–142; BP diastolic 76–94; PULSE 66–89; TEMP 97.5–99.1; O2SAT 79–98
[2020-04-15 06:05] LABS: ARTERIAL BLD GAS O2 SATURATION 91.1 % (92-100); ARTERIAL BLD GAS TCO2 CT 21.3; ARTERIAL BLOOD GAS BASE EXCESS -2.1 (-2-2); ARTERIAL BLOOD GAS HCO3 20.4 meq/L (22-26); ARTERIAL BLOOD GAS PCO2 29.5 mmHg (35-45); ARTERIAL BLOOD GAS pH 7.46 (7.35-7.45)
[2020-04-15 06:10] LABS: HEMATOCRIT 38.6 % (42.0-52.0); HEMOGLOBIN 12.9 g/dl (13.5-18.0); MEAN CELL VOLUME 88 fl (80.0-100.0); MEAN CORPUSCULAR HEMOGLOBIN 30 pg (27.0-31.0); MEAN CORPUSCULAR HGB CONC 33 g/dl (33.0-37.0); MEAN PLATELET VOLUME 9.3 fl (7.4-10.4); PLATELET COUNT 285 K/mm3 (130-400); RED BLOOD COUNT 4.38 M/mm3 (4.20-5.60); REDCELL DISTRIBUTION WIDTH-CV 13.3 % (11.5-14.5)
[2020-04-15 06:27] LABS: CALCIUM 8.6 mg/dL (8.4-10.2); CREATININE, serum 0.91 (0.66-1.25); MAGNESIUM 2.2 mg/dL (1.6-2.3); PHOSPHOROUS 4.3 mg/dL (2.5-4.5); POTASSIUM 4.7 mmol/L (3.4-5.0)
[2020-04-15 06:36] LABS: HYPOCHROMIA 1+; LYMPHOCYTE 4 % (20.0-51.0); NEUTROPHILS 91 % (42.0-75.2); OVALOCYTES 1+; PLATELET ESTIMATE NORMAL (NORMAL); POIKILOCYTOSIS 1+
[2020-04-15 08:33] LABS: ARTERIAL BLOOD GAS HCO3 24.2 meq/L (22-26); ARTERIAL BLOOD GAS PCO2 34.8 mmHg (35-45); ARTERIAL BLOOD GAS PO2 37.8 mmHg (80-100); ARTERIAL BLOOD GAS pH 7.46 (7.35-7.45)
[2020-04-15 08:34] LABS: ARTERIAL BLOOD GAS BASE EXCESS 0.8 (-2-2)
--- NOTE | 2020-04-15 17:36 | NUR ---
PT PLEASANT, AOX4, LUNG SOUNDS DIMINISHED, AIRVO 60L 90% FIO2. BS PRESENT, PT DINNER BROUGHT IN, REMDESIVIR INFUSING, IV FLUIDS HUNG, NO OTHER NEEDS AT THIS TIME. DENIES PAIN.
[2020-04-16 04:44] VITALS: BP 122/79; PULSE 79; TEMP 97.7
[2020-04-16 06:39] LABS: ARTERIAL BLD GAS O2 SATURATION 98.4 % (92-100); ARTERIAL BLD GAS TCO2 CT 21.5; ARTERIAL BLOOD GAS BASE EXCESS -2.3 (-2-2); ARTERIAL BLOOD GAS HCO3 20.6 meq/L (22-26); ARTERIAL BLOOD GAS PCO2 30.3 mmHg (35-45); ARTERIAL BLOOD GAS pH 7.45 (7.35-7.45)
[2020-04-16 07:08] LABS: HEMATOCRIT 38.1 % (42.0-52.0); HEMOGLOBIN 12.7 g/dl (13.5-18.0); MEAN CELL VOLUME 89 fl (80.0-100.0); MEAN CORPUSCULAR HEMOGLOBIN 30 pg (27.0-31.0); MEAN CORPUSCULAR HGB CONC 33 g/dl (33.0-37.0); MEAN PLATELET VOLUME 9.7 fl (7.4-10.4); PLATELET COUNT 264 K/mm3 (130-400); RED BLOOD COUNT 4.28 M/mm3 (4.20-5.60); REDCELL DISTRIBUTION WIDTH-CV 13.3 % (11.5-14.5)
[2020-04-16 07:17] LABS: ALBUMIN 2.9 gm/dL (3.5-5.0); BILIRUBIN,TOTAL 0.5 mg/dL (0.0-1.0); CALCIUM 8.3 mg/dL (8.4-10.2); CREATININE, serum 0.87 (0.66-1.25); PHOSPHOROUS 4.1 mg/dL (2.5-4.5); POTASSIUM 4.5 mmol/L (3.4-5.0)
[2020-04-16 07:45] VITALS: BP 128/79; PULSE 77; TEMP 98.2
[2020-04-16 08:05] LABS: BAND 2 % (0-10); LYMPHOCYTE 8 % (20.0-51.0); NEUTROPHILS 87 % (42.0-75.2); PLATELET ESTIMATE NORMAL (NORMAL)
--- NOTE | 2020-04-16 08:50 | NUR ---
Pt awake and alert upon entry, in bed. No C/O pain at this time. Shift assessments complete, left Pt call light in reach, bed in lowest position.
[2020-04-16 11:46] VITALS: BP 120/82; PULSE 80; TEMP 97.7
[2020-04-16 15:40] VITALS: BP 119/74; PULSE 82; TEMP 97.9
--- NOTE | 2020-04-16 18:36 | NUR ---
Pt resting in the bed today. Pt has had no C/O pain. Eating well. VS have remained stabe, currently on 60 lpm @ 90% on airvo.
[2020-04-16 20:00] VITALS: BP 129/81; PULSE 66; TEMP 98.1
[2020-04-17 00:47] VITALS: BP 133/86; PULSE 69; TEMP 97.5
[2020-04-17 03:42] VITALS: BP 129/90; PULSE 73; TEMP 98.3
[2020-04-17 05:43] LABS: ARTERIAL BLD GAS O2 SATURATION 98.7 % (92-100); ARTERIAL BLD GAS TCO2 CT 24.6; ARTERIAL BLOOD GAS HCO3 23.5 meq/L (22-26); ARTERIAL BLOOD GAS PCO2 34.9 mmHg (35-45); ARTERIAL BLOOD GAS pH 7.45 (7.35-7.45)
[2020-04-17 05:44] LABS: ARTERIAL BLOOD GAS PO2 134.4 mmHg (80-100)
[2020-04-17 08:01] VITALS: BP 123/82; PULSE 76; TEMP 97.7
[2020-04-17 08:54] LABS: HEMATOCRIT 41.9 % (42.0-52.0); HEMOGLOBIN 14.2 g/dl (13.5-18.0); MEAN CELL VOLUME 88 fl (80.0-100.0); MEAN CORPUSCULAR HEMOGLOBIN 30 pg (27.0-31.0); MEAN CORPUSCULAR HGB CONC 34 g/dl (33.0-37.0); MEAN PLATELET VOLUME 9.8 fl (7.4-10.4); PLATELET COUNT 253 K/mm3 (130-400); RED BLOOD COUNT 4.74 M/mm3 (4.20-5.60); REDCELL DISTRIBUTION WIDTH-CV 13.2 % (11.5-14.5)
[2020-04-17 09:06] LABS: CALCIUM 8.3 mg/dL (8.4-10.2); CREATININE, serum 0.81 (0.66-1.25); MAGNESIUM 2.2 mg/dL (1.6-2.3); PHOSPHOROUS 3.8 mg/dL (2.5-4.5); POTASSIUM 4.8 mmol/L (3.4-5.0)
[2020-04-17 09:29] LABS: LYMPHOCYTE 7 % (20.0-51.0); NEUTROPHILS 90 % (42.0-75.2)
[2020-04-17 09:30] LABS: PLATELET ESTIMATE NORMAL (NORMAL)
--- NOTE | 2020-04-17 10:23 | NUR ---
Pt awake and alert upon entry, sitting on side of bed. No C/O pain at this time. Shift assessments complete, left Pt call light in reach.
--- NOTE | 2020-04-17 12:06 | NUR ---
There are no new needs at this time. Patient is currently on 60L 02 and will not discharge today (04/17). Social work will continue to follow.
[2020-04-17 12:45] VITALS: BP 102/61; PULSE 84; TEMP 98.3
[2020-04-17 16:57] VITALS: BP 114/74; PULSE 83; TEMP 98
--- NOTE | 2020-04-17 20:30 | NUR ---
Initial shift assessment done- denies pain/denies SOB at rest, Airvo at 60L/78%,, sats 93-94%,, will go on Bipap for the night closer to [place] pt states. Snack given to patient- no other requests
[2020-04-17 20:38] VITALS: BP 107/67; PULSE 79; TEMP 99.5
[2020-04-18 00:19] VITALS: BP 134/72; PULSE 73; TEMP 98.4
[2020-04-18 04:18] VITALS: BP 131/81; PULSE 67; TEMP 97.6
--- NOTE | 2020-04-18 06:02 | NUR ---
Quiet night-- did wear Bipap most of the night, now back on Airvo, sats upper 90,s,, decreased per respiratory therapy to 50L, 70%,, sats now 95-96%
[2020-04-18 07:23] LABS: HEMATOCRIT 39.3 % (42.0-52.0); HEMOGLOBIN 12.9 g/dl (13.5-18.0); MEAN CELL VOLUME 90 fl (80.0-100.0); MEAN CORPUSCULAR HEMOGLOBIN 30 pg (27.0-31.0); MEAN CORPUSCULAR HGB CONC 33 g/dl (33.0-37.0); MEAN PLATELET VOLUME 10.2 fl (7.4-10.4); PLATELET COUNT 266 K/mm3 (130-400); RED BLOOD COUNT 4.37 M/mm3 (4.20-5.60); REDCELL DISTRIBUTION WIDTH-CV 13.2 % (11.5-14.5)
--- NOTE | 2020-04-18 07:36 | NUR ---
ABLE TO WEAN FROM 70% FIO2 TO 60%, SPO2 94%.
[2020-04-18 07:39] VITALS: BP 118/79; PULSE 78; TEMP 97.7
[2020-04-18 07:44] LABS: BILIRUBIN,TOTAL 0.5 mg/dL (0.0-1.0); CALCIUM 8.4 mg/dL (8.4-10.2); CREATININE, serum 0.84 (0.66-1.25); MAGNESIUM 2.1 mg/dL (1.6-2.3); PHOSPHOROUS 3.6 mg/dL (2.5-4.5); POTASSIUM 4.6 mmol/L (3.4-5.0); TOTAL PROTEIN 6.1 gm/dL (6.4-8.2)
[2020-04-18 08:09] LABS: BAND 1 % (0-10); LYMPHOCYTE 7 % (20.0-51.0); METAMYELOCYTE 1 % (0-0); NEUTROPHILS 86 % (42.0-75.2)
[2020-04-18 08:10] LABS: PLATELET ESTIMATE NORMAL (NORMAL)
--- NOTE | 2020-04-18 09:21 | NUR ---
Pt awake and alert upon entry this morning, no C/O pain at this time. Shift assessments conmplete, left Pt call light in reach, bed in lowest position.
[2020-04-18 11:57] VITALS: BP 126/66; PULSE 85; TEMP 98.3
--- NOTE | 2020-04-18 15:20 | NUR ---
PATIENT ABLE TO WEAN TO HF GREEN CANULA AT 6 LPM, SPO2 93%. BIPAP AND AIRVO2 STANDBY.
[2020-04-18 15:42] VITALS: BP 113/61; PULSE 85; TEMP 97.8
--- NOTE | 2020-04-18 18:13 | NUR ---
Pt resting in the room today no C/O pain throughout the day. Pt now off the airvo and on HFNC @ 6 lpm. VS have remained stable.
[2020-04-18 19:27] VITALS: BP 122/67; PULSE 83; TEMP 98.6
--- NOTE | 2020-04-18 20:30 | NUR ---
Initial shift assessment done- denies pain- states feeling good tonight,, on o2 at 6L/high flow, tolerating well with sats 93-96%. Did give a snack tonight- no other requests.
[2020-04-19 00:01] VITALS: BP 113/75; PULSE 73; TEMP 97.7
[2020-04-19 04:58] VITALS: BP 134/81; PULSE 76; TEMP 98.1
--- NOTE | 2020-04-19 06:00 | NUR ---
Quiet night- no requests all night-- 02 remains at 6L/high flow nasal cannula- sats 96%
--- NOTE | 2020-04-19 08:07 | NUR ---
REMOVED BIPAP AND AIRVO2 FROM ROOM. PATIENT ON 4 LPM NASAL CANNULA, SPO2 94%.
--- NOTE | 2020-04-19 08:09 | NUR ---
PATIENT QUALIFIES FOR HOME OXYGEN, NEEDS 4 LPM WHILE AMBULATINF, SPO2 94%. NEEDS 2 LPM RESTING, SPO2 91%.
[2020-04-19 08:54] VITALS: BP 124/86; PULSE 80; TEMP 98.3
--- NOTE | 2020-04-19 09:05 | NUR ---
Pt awake and alert upon entry, talkative, no C/O pain at this time. Shift assessments complete, left Pt call light in reqach, bed in lowest position.
[2020-04-19 12:11] VITALS: PULSE 80; TEMP 98.5
--- NOTE | 2020-04-19 14:48 | NUR ---
The patient may be able to d/c tomorrow, 04/20. He is down to 4 liters of oxygen. MIS attempted to contact the patient's room phone to review d/c plan. He did not answer. IMS then contacted the patient's , Eric, to review d/c plan. Eric reports no concerns about the patient returning home upon discharge. She was agreeable to getting the patient's oxygen from [facility], if he does qualify for some. MIS to continue to follow.
[2020-04-19 16:53] VITALS: BP 130/74; PULSE 86; TEMP 98.5
--- NOTE | 2020-04-19 19:50 | NUR ---
Patient assessed at this time. Alert and oriented x 4, and able to make needs known. Denies having pain and discomfort at this time. Triple lumen central catheter to left IJ. Each lumen flushed. Dressing CDI. Denies SOB and dsypnea. LS CTA in upper lobes, diminished in lower. On oxygen at 4 L/min via NC. Respirations even and unlabored. HRR. Capillary refill less than 3 seconds. Non-tenting skin turgor. BSAx4. Abdomen soft and non-tender. No edema. Voices no questions, needs, or concerns at this time. Resting in bed with call light within reach.
[2020-04-19 20:55] VITALS: BP 116/67; PULSE 80; TEMP 97.5
[2020-04-20 00:02] VITALS: BP 126/76; PULSE 67; TEMP 97.6
[2020-04-20 03:11] VITALS: BP 116/81; PULSE 70; TEMP 97.8
--- NOTE | 2020-04-20 05:27 | NUR ---
Patient has been resting in bed with call light within reach. Voices no questions, needs, or concerns at this time. Continues on oxygen at 4 L/min via NC.
--- NOTE | 2020-04-20 08:50 | NUR ---
Shift assessment complete. Pt up independently in room, gait steady. A&Ox4, heart RRR, lungs CTA. Denies pain or SOA. NC on with O2 at 2 lpm. NC removed at this time for BRAKE REPAIR MECHANIC to do ex-ox. Sats remaining at 93% RA. Denies other needs at this time. Call light in reach.
[2020-04-20 08:52] VITALS: BP 124/80; PULSE 77; TEMP 98.3
[2020-04-20] MEDS ORDERED: RT Albuterol HFA MDI IH (10:00)
[2020-04-20] MEDS ORDERED: PROAIR HFA0.09 MG/AC IH (10:00)
[2020-04-20] MEDS ORDERED: REVLIMID15 MG PO (10:00)
[2020-04-20] MEDS ORDERED: TYLENOL 325MG325 MG PO (10:01)
--- NOTE | 2020-04-20 11:51 | NUR ---
The patient is to discharge back home with his today, 04/20. An exercise oximetry was ordered and the patient qualified for 2 liters of oxygen. MIS contacted and faxed the oxygen order to Shaye at [facility]. Awaiting delivery of oxygen. MIS contacted and updated the patient's , Eric.
[2020-04-20 12:01] VITALS: BP 124/69; PULSE 76; TEMP 98.1
--- NOTE | 2020-04-20 14:00 | NUR ---
[facility] reports that they will be here in twenty minutes to deliver a portable oxygen tank to the patient's room. SW notified the patient's RN. No additional needs at this time.
--- NOTE | 2020-04-20 15:00 | NUR ---
Discharge instructions discussed with pt and all questions answered. Left IJ removed, pressure held for 10 minutes w/o signs of bleeding, pressure dressing applied. Pt taken down to ED entrance to 's car via wheelchair, all belongings with pt.
== END 2020-04-20 13:45 | disposition home or self-care (01) | DRG 177 ==
LOC: COL.ER 12:16 → ICU 16:31 → MEDICAL 16:31 → ICU 04-13 12:28 → MEDICAL 04-15 17:14
PROVIDERS: Emergency Medicine; Internal Medicine; Internal Medicine Pulmonary Disease; ADMIT Family Medicine
PROC: XW033E5 Introduction of Remdesivir Anti-infective into Peripheral Vein, Percutaneous Approach, New Technology Group 5 (ICD-10-PCS; principal; 2020-04-13)
PROC: XW13325 Transfusion of Convalescent Plasma (Nonautologous) into Peripheral Vein, Percutaneous Approach, New Technology Group 5 (ICD-10-PCS; 2020-04-13)
PROC: 02HV33Z Insertion of Infusion Device into Superior Vena Cava, Percutaneous Approach (ICD-10-PCS; 2020-04-13)
DX: U07.1 COVID-19 (principal); J96.01 Acute respiratory failure with hypoxia; J12.82 Pneumonia due to coronavirus disease 2019; C90.00 Multiple myeloma not having achieved remission; Z94.84 Stem cells transplant status; F17.210 Nicotine dependence, cigarettes, uncomplicated; I10 Essential (primary) hypertension; Z88.2 Allergy status to sulfonamides; Z88.1 Allergy status to other antibiotic agents
CPT/HCPCS: 99223-AI; 99232-AI; 99233-AI; 99239; J0696; J1100; J1650; J7030; J7050; J8540; Q9967